=== PATIENT | male | born 1960 | race American Indian/Alaskan Native ===

== ENCOUNTER 2018-07-29 07:56 | Emergency (ER) | payer SELFPAY ==
[2018-07-29 08:01] VITALS: BP 128/84
--- NOTE | 2018-07-29 08:27 | Emergency Department Report ---
ED Rash HPI - HPI Chief Complaint: Skin/Abscess/Foreign Body Stated Complaint: OPEN WOUND/LT BUTTOCK Duration: several months Location: Lower Extremities Rash Symptoms: Yes Peeling, Yes Blistering, No Itching, No Facial Swelling, No Tongue/Oral Swelling, No Breathing Difficulties, No Fever, No Lightheaded, No Malaise, No Myalgias Severity: moderate Other History: Mr. Mckinney is a healthy 58 yo male with a skin condition which required surgical excision on right thigh buttock region in 2000. The same condition has flared up on the left buttock posterior thigh for several months. The skin is inflamed with open skin. Mild to moderate irritation. No fever. No chills. No malaise. ED Review of Systems ROS: Stated complaint: OPEN WOUND/LT BUTTOCK Other details as noted in HPI Constitutional: denies: fever, malaise Respiratory: denies: shortness of breath Cardiovascular: denies: chest pain Gastrointestinal: denies: abdominal pain Skin: rash, lesions Neurological: denies: headache ED Past Medical Hx - Past Medical History Previous Medical History?: No - Surgical History Past Surgical History?: No - Social History Smoking Status: Never Smoker Substance Use Type: Marijuana - Medications Home Medications: Home Medications Medication Instructions Recorded Confirmed Last Taken Type Sulfamethoxazole/Trimethoprim 1 each PO BID 10 Days #20 tablet 07/29/18 Unknown Rx [Bactrim DS TAB] Rash Exam - Exam General: Vital signs noted. No distress. Alert and acting appropriately. Posterior left thigh and left buttock keloid-appearing skin granulomatous changes with several open ulcerations involving the lower leg and upper posterior thigh HEENT: No Periorbital Edema, No Conjuctival Injection, No Chemosis, No Perioral Edema, No Tongue Edema, No Uvular Edema, No Compromised Airway, No Drooling Lungs: Yes Good Air Exchange, No Wheezes, No Stridor, No Cough, No Labored Respirations, No Retractions, No Use of Accessory Muscles ED Course Vital Signs 07/29/18 07:58 Temperature 97.9 F Pulse Rate 81 Respiratory 18 Rate Blood Pressure 128/84 O2 Sat by Pulse 99 Oximetry ED Medical Decision Making - Medical Decision Making Clinical impression is hidradenitis suppurative Idid see surgical scar on the right posterior lower extremity at the buttock region. I prescribed Bactrim, I also recommended sitz baths. Patient and both desire surgical intervention. Provided referral to general surgeon director of search engine optimization. Critical care attestation.: If time is entered above; I have spent that time in minutes in the direct care of this critically ill patient, excluding procedure time. ED Disposition Clinical Impression: Hidradenitis suppurativa Disposition: [id number] TO HOME OR SELFCARE Is pt being admited?: No Does the pt Need Aspirin: No Condition: Stable Additional Instructions: Please call our surgeon for an appointment. Prescriptions: Sulfamethoxazole/Trimethoprim [Bactrim DS TAB] 1 each PO BID 10 Days #20 tablet Referrals: TOBIAS STROUD MD [Staff Physician] - [place] Forms: Work/School Release Form(ED)
== END 2018-07-29 08:39 | disposition home or self-care (01) ==
LOC: ED 07:56
DX: L73.2 Hidradenitis suppurativa (principal)
CPT/HCPCS: 99282